=== PATIENT | female | born 1960 | race African-American/Black ===

== ENCOUNTER 2019-03-19 06:33 | Day surgery (SDC) | payer OTHER ==
[2019-03-18 13:41] VITALS: BMI 42.7
== END 2019-03-19 07:27 | disposition home or self-care (01) ==
LOC: JASU-SURG 06:33
PROVIDERS: ATTEND Physical Medicine & Rehabilitation
DX: Z53.8 Procedure and treatment not carried out for other reasons (principal)
CPT/HCPCS: 82962